=== PATIENT | female | born 1945 | race Caucasian/White ===

== ENCOUNTER → 2023-12-14 09:46 | Outpatient (REF) | payer MEDICARE, SELFPAY | LOC: HWRAD 09:46 | PROVIDERS: ATTENDING PHYSICIAN Internal Medicine Geriatric Medicine | DX: E04.1 Nontoxic single thyroid nodule (principal) | CPT/HCPCS: 76536 ==

== ENCOUNTER → 2024-12-19 12:44 | Outpatient (REF) | payer MEDICARE, SELFPAY | LOC: HWRAD 12:44 | PROVIDERS: ATTENDING PHYSICIAN Nurse Practitioner Family | DX: M54.42 Lumbago with sciatica, left side (principal) | CPT/HCPCS: 72110 ==

== ENCOUNTER → 2025-02-22 10:52 | Outpatient (REF) | payer MEDICARE, SELFPAY ==
[2025-02-22 17:06] LABS: % Basophils 1.1 % (0-2); % Immature Granulocytes 0.2 % (0-0.5); % Lymphocytes 31.3 % (20.5-51.1); % Neutrophils 51.4 % (42.2-75.2); Absolute Basophils 0.1 10^3/uL (0-0.2); Absolute Eosinophils 0.1 10^3/uL (0-0.7); Absolute Monocytes 0.9 10^3/uL (0.1-0.6); Absolute Neutrophils 3.3 10^3/uL (1.4-6.5); Hematocrit 37.6 % (37.0-47.0); Hemoglobin 12.2 g/dL (12.0-16.0); Mean Corp Hgb Conc. 32.4 g/dL (33.0-37.0); Mean Corpuscular Hgb 29.8 pg (27.0-31.0); Mean Corpuscular Volume 91.7 fL (81.0-99.0); Mean Platelet Volume 11.4 fL (7.4-10.4); Nucleated Red Blood Cells % 0 %; Platelet Count 219 10^3/uL (130-400); Urine Albumin Negative (Neg - Trace); Urine Bilirubin Negative (Negative); Urine Character Clear (Clear); Urine Color Yellow; Urine Glucose Negative (Negative); Urine Ketone Negative (Negative); Urine Leukocyte 3+ (Negative); Urine Nitrite Negative (Negative); Urine Occult Blood 1+ (Negative); Urine Urobilinogen Negative (Neg - 1+); White Blood Cell Count 6.4 10^3/uL (4.8-10.8)
[2025-02-22 17:14] LABS: Urine Squamous Cell 0-2 /LPF (Few)
[2025-02-22 17:15] LABS: Urine Bacteria Few (Negative)
[2025-02-22 17:28] LABS: ALT (SGPT) 19 U/L (0-35); AST (SGOT) 26 U/L (14-36); Albumin 4.1 g/dl (3.5-5.0); Alkaline Phosphatase 84 U/L (38-126); Blood Urea Nitrogen 12 mg/dl (7-17); Calcium 8.8 mg/dl (8.4-10.2); Carbon Dioxide 31 mmol/L (22-30); Chloride 104 mmol/L (98-107); Glucose 88 mg/dl (70-99); HDL Cholesterol 87 mg/dl; LDL Cholesterol, Calculated 89 mg/dl; Magnesium 2.1 mg/dl (1.6-2.3); Potassium 4.6 mmol/L (3.5-5.1); Sodium 139 mmol/L (135-145); Total Bilirubin 0.6 mg/dl (0.2-1.3); Total Cholesterol 184 mg/dl (50-199); Total Protein 6.5 g/dl (6.3-8.2); Triglyceride 41 mg/dl (10-149); Very Low Density Lipoprotein 8 mg/dl (0-30); eGFR > 60.00
[2025-02-22 17:43] LABS: Vitamin D, 25-OH*** 44.4 ng/mL (30-80)
[2025-02-22 17:59] LABS: TSH 1.59 uIU/ml (0.47-4.68)
== END ==
LOC: HWLAB 10:52
PROVIDERS: ATTENDING PHYSICIAN Internal Medicine Geriatric Medicine
DX: E78.2 Mixed hyperlipidemia (principal); E04.1 Nontoxic single thyroid nodule; K58.0 Irritable bowel syndrome with diarrhea; M79.7 Fibromyalgia; N64.4 Mastodynia; Z13.89 Encounter for screening for other disorder; G43.009 Migraine without aura, not intractable, without status migrainosus; M54.42 Lumbago with sciatica, left side
CPT/HCPCS: 36415; 80053; 80061; 81003; 81015; 82306; 83735; 84443; 85025

== ENCOUNTER 2025-08-30 14:58 | Outpatient (RCR) | payer MEDICARE, SELFPAY | END 2025-08-30 23:59 | disposition home or self-care (01) | LOC: RPT 14:58 | PROVIDERS: ATTENDING PHYSICIAN Nurse Practitioner Family | DX: M54.51 Vertebrogenic low back pain (principal); Z73.6 Limitation of activities due to disability; R26.2 Difficulty in walking, not elsewhere classified; M62.81 Muscle weakness (generalized); M79.605 Pain in left leg | CPT/HCPCS: 97110; 97162 ==

== ENCOUNTER 2025-09-20 14:24 | Outpatient (RCR) | payer MEDICARE, SELFPAY | END 2025-09-20 23:59 | disposition home or self-care (01) | LOC: RPT 14:24 | PROVIDERS: ATTENDING PHYSICIAN Nurse Practitioner Family | DX: M54.51 Vertebrogenic low back pain (principal); Z73.6 Limitation of activities due to disability; R26.2 Difficulty in walking, not elsewhere classified; M62.81 Muscle weakness (generalized); M79.605 Pain in left leg | CPT/HCPCS: 97110; 97112 ==

== ENCOUNTER → 2025-10-17 07:40 | Outpatient (REF) | payer MEDICARE, SELFPAY | LOC: DHSLP 07:40 | PROVIDERS: ATTENDING PHYSICIAN Internal Medicine Geriatric Medicine; FAMILY PHYSICIAN Internal Medicine | DX: G47.30 Sleep apnea, unspecified (principal); R06.83 Snoring | CPT/HCPCS: 95800 ==